=== PATIENT | male | born 1960 | race Caucasian/White ===

== ENCOUNTER 2018-08-18 17:47 | Emergency (ER) | payer OTHER ==
[~2018-08-18] VITALS: Ht 188 cm; Wt 122.5 kg
[~2018-08-18 17:47] MED LIST: ADULT LOW DOSE81 MG; FENOFIBRATE160 MG; VITAMIN D; [UNRECOGNIZED DRUG - OTHER]
[2018-08-18] MEDS ORDERED: OXYCONTIN15 MG PO (18:00)
[2018-08-18] MEDS ORDERED: COZAAR 25 MG TA25 MG PO (18:00)
[2018-08-18] MEDS ORDERED: NORCO 10-325 T1 EACH PO (18:00)
[2018-08-18] MEDS ORDERED: PRAVASTATIN SOD20 MG PO (18:03)
[2018-08-18] MEDS ORDERED: MEDROLDOSEPACK PO (18:07)
[2018-08-18] MEDS ORDERED: IBU600 MG PO (18:07)
[2018-08-18] MEDS ORDERED: ROBAXIN500 MG PO (18:07)
[2018-08-18 18:40] VITALS: BP 142/103
== END 2018-08-18 18:40 | disposition home or self-care (01) ==
LOC: M.ERS 17:47
DX: G89.29 Other chronic pain (principal); M54.5 Low back pain; E78.00 Pure hypercholesterolemia, unspecified; I10 Essential (primary) hypertension; Z88.8 Allergy status to other drugs, medicaments and biological substances; Z77.22 Contact with and (suspected) exposure to environmental tobacco smoke (acute) (chronic)

== ENCOUNTER → 2021-03-01 | Outpatient (CLI) | payer OTHER ==
[~2021-03-01] MED LIST changes: +COZAAR 25 MG TA25 MG PO; +IBU600 MG PO; +MEDROLDOSEPACK PO; +MORPHINE SULFAT15 MG PO; +NORCO 10-325 T1 EACH PO; +OXYCONTIN15 MG PO; +PRAVASTATIN SOD20 MG PO; +ROBAXIN500 MG PO
== END ==
LOC: M.PC 07:49
PROVIDERS: ATTEND Anesthesiology Pain Medicine
DX: M43.16 Spondylolisthesis, lumbar region (principal); M48.061 Spinal stenosis, lumbar region without neurogenic claudication; M54.5 Low back pain; I10 Essential (primary) hypertension; M71.38 Other bursal cyst, other site; E78.1 Pure hyperglyceridemia; E78.01 Familial hypercholesterolemia; G47.33 Obstructive sleep apnea (adult) (pediatric); M19.90 Unspecified osteoarthritis, unspecified site; G43.919 Migraine, unspecified, intractable, without status migrainosus; F32.9 Major depressive disorder, single episode, unspecified; F41.9 Anxiety disorder, unspecified; G61.0 Guillain-Barre syndrome; T78.3XXA Angioneurotic edema, initial encounter; E66.9 Obesity, unspecified

== ENCOUNTER → 2021-03-29 | Outpatient (CLI) | payer OTHER | LOC: M.PC 11:04 | PROVIDERS: ATTEND Anesthesiology Pain Medicine | DX: M48.061 Spinal stenosis, lumbar region without neurogenic claudication (principal); G89.29 Other chronic pain; M43.16 Spondylolisthesis, lumbar region; I10 Essential (primary) hypertension; E78.1 Pure hyperglyceridemia; E66.9 Obesity, unspecified; E78.00 Pure hypercholesterolemia, unspecified; G47.33 Obstructive sleep apnea (adult) (pediatric); M19.90 Unspecified osteoarthritis, unspecified site; G43.909 Migraine, unspecified, not intractable, without status migrainosus; G61.0 Guillain-Barre syndrome; T78.3XXA Angioneurotic edema, initial encounter; F32.9 Major depressive disorder, single episode, unspecified; F41.9 Anxiety disorder, unspecified; Z79.899 Other long term (current) drug therapy; Z79.891 Long term (current) use of opiate analgesic ==

== ENCOUNTER → 2021-05-03 | Outpatient (CLI) | payer OTHER | LOC: M.PC 11:30 | PROVIDERS: ATTEND Anesthesiology Pain Medicine | DX: M43.16 Spondylolisthesis, lumbar region (principal); G89.29 Other chronic pain; M54.5 Low back pain; M48.061 Spinal stenosis, lumbar region without neurogenic claudication; E78.1 Pure hyperglyceridemia; E66.9 Obesity, unspecified; E78.01 Familial hypercholesterolemia; G47.33 Obstructive sleep apnea (adult) (pediatric); M25.59 Pain in other specified joint; F41.9 Anxiety disorder, unspecified; G61.0 Guillain-Barre syndrome ==

== ENCOUNTER → 2021-05-31 | Outpatient (CLI) | payer OTHER | LOC: M.PC 10:54 | PROVIDERS: ATTEND Anesthesiology Pain Medicine | DX: M47.816 Spondylosis without myelopathy or radiculopathy, lumbar region (principal); I10 Essential (primary) hypertension; E78.1 Pure hyperglyceridemia; G47.33 Obstructive sleep apnea (adult) (pediatric); E66.9 Obesity, unspecified; F32.9 Major depressive disorder, single episode, unspecified; M43.16 Spondylolisthesis, lumbar region; M71.38 Other bursal cyst, other site; F17.200 Nicotine dependence, unspecified, uncomplicated; Z79.899 Other long term (current) drug therapy ==

== ENCOUNTER → 2021-06-28 | Outpatient (CLI) | payer OTHER | LOC: M.PC 10:49 | PROVIDERS: ATTEND Anesthesiology Pain Medicine | DX: G89.29 Other chronic pain (principal); M48.061 Spinal stenosis, lumbar region without neurogenic claudication; M43.16 Spondylolisthesis, lumbar region; I10 Essential (primary) hypertension; E78.1 Pure hyperglyceridemia; E78.00 Pure hypercholesterolemia, unspecified; G47.33 Obstructive sleep apnea (adult) (pediatric); M19.09 Primary osteoarthritis, other specified site; G43.919 Migraine, unspecified, intractable, without status migrainosus; F41.8 Other specified anxiety disorders; Z88.8 Allergy status to other drugs, medicaments and biological substances; Z79.899 Other long term (current) drug therapy ==

== ENCOUNTER → 2021-08-09 | Outpatient (CLI) | payer OTHER | LOC: M.PC 11:53 | PROVIDERS: ATTEND Anesthesiology Pain Medicine | DX: M43.16 Spondylolisthesis, lumbar region (principal); M71.38 Other bursal cyst, other site; I10 Essential (primary) hypertension; E78.00 Pure hypercholesterolemia, unspecified; G47.33 Obstructive sleep apnea (adult) (pediatric); M19.90 Unspecified osteoarthritis, unspecified site; F41.8 Other specified anxiety disorders; E66.9 Obesity, unspecified; Z88.8 Allergy status to other drugs, medicaments and biological substances; Z79.899 Other long term (current) drug therapy ==

== ENCOUNTER → 2021-09-06 | Outpatient (CLI) | payer OTHER | LOC: M.PC 11:37 | PROVIDERS: ATTEND Anesthesiology Pain Medicine | DX: G89.29 Other chronic pain (principal); M48.061 Spinal stenosis, lumbar region without neurogenic claudication; M43.16 Spondylolisthesis, lumbar region; I10 Essential (primary) hypertension; E78.1 Pure hyperglyceridemia; E78.00 Pure hypercholesterolemia, unspecified; G47.33 Obstructive sleep apnea (adult) (pediatric); F41.8 Other specified anxiety disorders; M19.90 Unspecified osteoarthritis, unspecified site; E66.9 Obesity, unspecified; F17.200 Nicotine dependence, unspecified, uncomplicated; Z88.8 Allergy status to other drugs, medicaments and biological substances; Z79.899 Other long term (current) drug therapy ==

== ENCOUNTER → 2021-10-04 | Outpatient (CLI) | payer OTHER ==
[~2021-10-04] MED LIST changes: +MOBIC15 MG PO
== END ==
LOC: M.PC 11:20
PROVIDERS: ATTEND Anesthesiology Pain Medicine
DX: T78.3XXA Angioneurotic edema, initial encounter (principal); G89.29 Other chronic pain; M54.50 Low back pain, unspecified; I10 Essential (primary) hypertension; F41.8 Other specified anxiety disorders; F32.A Depression, unspecified; G47.33 Obstructive sleep apnea (adult) (pediatric); M71.38 Other bursal cyst, other site; M47.816 Spondylosis without myelopathy or radiculopathy, lumbar region; M48.061 Spinal stenosis, lumbar region without neurogenic claudication; Z83.42 Family history of familial hypercholesterolemia; M15.9 Polyosteoarthritis, unspecified; E78.1 Pure hyperglyceridemia; E66.01 Morbid (severe) obesity due to excess calories; G61.0 Guillain-Barre syndrome; G43.119 Migraine with aura, intractable, without status migrainosus; Z79.899 Other long term (current) drug therapy; Z88.8 Allergy status to other drugs, medicaments and biological substances